=== PATIENT | male | born 1995 | race Caucasian/White ===

== ENCOUNTER 2017-11-21 22:13 | Emergency (ER) | payer OTHER ==
[~2017-11-21] VITALS: Ht 190.5 cm; Wt 122.5 kg
[~2017-11-21 22:13] MED LIST: ABILIFY10 MG PO; CLEOCIN HCL300 MG PO; DOXYCYCLINE 10100 M1 PO; DOXYCYCLINE 10100 MG PO; EFFEXOR 5050 MG/1 T1 PO; EFFEXOR XR75 MG; HYDROCODONE-AP1 EAC6 PO; IBUPROFEN 800800 M1 PO; IBUPROFEN 800800 MG PO; INVEGA9 MG; KEFLEX500 MG PO; LEXAPRO20 MG; METFORMIN HCL500 MG PO; NOHOMEMEDICATIONS; ONDANSETRON HCL4 M2 PO; OXCARBAZEPINE300 M1; PAXIL10 MG PO; PERCOCET 5-3251 EACH PO; PREDNISONE 20 M20 MG PO; PROTONIX40 M1 PO; PROZAC 10 MG CA10 MG; SEROQUEL400 MG PO; TEGRETOL XR100 MG PO; TRAMADOL 50 MG50 MG PO; TRILEPTAL; TYLENOL325 MG PO; VENTOLIN HFA 1818 GM INH; VISTARIL 25 MG25 M1 PO
[2017-11-21] MEDS ORDERED: NAPROSYN500 MG PO (23:56)
[2017-11-21] MEDS ORDERED: CYCLOBENZAPRINE5 MG PO (23:56)
[2017-11-22 00:08] VITALS: BP 138/68
== END 2017-11-22 00:08 | disposition home or self-care (01) ==
LOC: M.ERS 22:13
DX: S06.0X1A Concussion with loss of consciousness of 30 minutes or less, initial encounter (principal); S39.012A Strain of muscle, fascia and tendon of lower back, initial encounter; F98.8 Other specified behavioral and emotional disorders with onset usually occurring in childhood and adolescence; F31.9 Bipolar disorder, unspecified; F17.210 Nicotine dependence, cigarettes, uncomplicated; Z88.0 Allergy status to penicillin; Z88.2 Allergy status to sulfonamides; Z88.8 Allergy status to other drugs, medicaments and biological substances; W10.8XXA Fall (on) (from) other stairs and steps, initial encounter; Y93.89 Activity, other specified; Y92.89 Other specified places as the place of occurrence of the external cause; Y99.8 Other external cause status

== ENCOUNTER 2018-05-27 22:27 | Emergency (ER) | payer OTHER ==
[~2018-05-27] VITALS: Ht 182.9 cm; Wt 84.8 kg
[~2018-05-27 22:27] MED LIST changes: +CYCLOBENZAPRINE5 MG PO; +NAPROSYN500 MG PO
[2018-05-27 22:50] LABS: URINE CLARITY CLEAR; URINE COLOR YELOW; URINE GLUCOSE-RANDOM NEGATIVE (Negative); URINE KETONES TR (Negative); URINE PROTEIN TR (Negative)
[2018-05-27 22:51] LABS: URINE BILIRUBIN 1+ (Negative); URINE BLOOD TR (Negative); URINE LEUKOCYTES-REFLEX NEGATIVE (Negative); URINE NITRITE-REFLEX NEGATIVE (Negative)
[2018-05-27 22:52] LABS: ICTOTEST (BILI CONFIRMATORY) Negative (Negative)
[2018-05-27] MEDS ORDERED: FLEXERIL PO (23:22)
[2018-05-27] MEDS ORDERED: IBUPROFEN 800800 MG PO (23:22)
[2018-05-27 23:34] VITALS: BP 127/59
== END 2018-05-27 23:36 | disposition home or self-care (01) ==
LOC: M.ERS 22:27
PROVIDERS: Nurse Practitioner
DX: S60.221A Contusion of right hand, initial encounter (principal); M54.5 Low back pain; F31.9 Bipolar disorder, unspecified; Z88.0 Allergy status to penicillin; Z88.2 Allergy status to sulfonamides; F17.210 Nicotine dependence, cigarettes, uncomplicated; X58.XXXA Exposure to other specified factors, initial encounter; Y93.89 Activity, other specified; Y92.89 Other specified places as the place of occurrence of the external cause; Y99.8 Other external cause status

== ENCOUNTER 2018-05-30 20:30 | Emergency (ER) | payer OTHER ==
[~2018-05-30] VITALS: Ht 188 cm; Wt 86.2 kg
[~2018-05-30 20:30] MED LIST changes: +FLEXERIL PO
[2018-05-30] MEDS ORDERED: OXCARBAZEPINE300 M1 (20:43)
[2018-05-30 20:54] LABS: CALCIUM 9.1 mg/dL (8.5-10.1); CREATININE 0.9 mg/dL (0.6-1.3); POTASSIUM 3.8 mmol/L (3.5-5.1)
[2018-05-30 21:07] LABS: ABSOLUTE EOSINOPHILS 0.2 thou/uL (0.0-0.7); ABSOLUTE LYMPHOCYTES 2.4 thou/uL (0.8-5.3); ABSOLUTE MONOCYTES 0.5 thou/uL (0.0-1.2); ABSOLUTE NEUTROPHILS 5.3 thou/uL (1.6-8.1); BASOPHILS 0.6 %; EOSINOPHILS 2.2 %; HEMATOCRIT 48.4 % (42.0-52.0); HEMOGLOBIN 16.8 gm/dL (14.0-18.0); LYMPHOCYTES 28.5 %; MCH 31.3 pg (26.0-34.0); MCHC 34.7 g/dL (28.0-37.0); MCV 90.3 fL (80.0-100.0); MONOCYTES 6.3 %; MPV 9.8 fl. (7.2-11.1); NUCLEATED RBCS 0 /100WBC; PLATELET COUNT* 152 thou/uL (150-400); POLYS 62.4 %; RBC 5.37 mil/uL (4.50-6.00); RDW-CV 13.6 % (10.5-14.5); WBC 8.5 thou/uL (4.0-11.0)
[2018-05-30 21:40] VITALS: BP 102/57
--- NOTE | 2018-05-31 15:05 | EKG ---
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
== END 2018-05-30 21:42 | disposition home or self-care (01) ==
LOC: M.ERS 20:30
PROVIDERS: Emergency Medicine
DX: R07.89 Other chest pain (principal); M79.601 Pain in right arm; F31.9 Bipolar disorder, unspecified; F98.8 Other specified behavioral and emotional disorders with onset usually occurring in childhood and adolescence; F17.210 Nicotine dependence, cigarettes, uncomplicated; Z88.0 Allergy status to penicillin; Z88.2 Allergy status to sulfonamides; Z88.8 Allergy status to other drugs, medicaments and biological substances

== ENCOUNTER 2018-06-24 23:13 | Emergency (ER) | payer OTHER ==
[~2018-06-24] VITALS: Ht 205.7 cm; Wt 81.7 kg
[2018-06-24] MEDS ORDERED: TRAZODONE HCL50 MG PO (23:22)
[2018-06-24] MEDS ORDERED: PREDNISONE 10 M10 M1 PO (23:39)
[2018-06-24] MEDS ORDERED: BENZONATATE200 MG PO (23:39)
[2018-06-24 23:52] VITALS: BP 123/67
== END 2018-06-24 23:53 | disposition home or self-care (01) ==
LOC: M.ERS 23:13
DX: J40 Bronchitis, not specified as acute or chronic (principal); F31.9 Bipolar disorder, unspecified; F98.8 Other specified behavioral and emotional disorders with onset usually occurring in childhood and adolescence; F17.210 Nicotine dependence, cigarettes, uncomplicated; Z88.0 Allergy status to penicillin; Z88.2 Allergy status to sulfonamides; Z88.8 Allergy status to other drugs, medicaments and biological substances

== ENCOUNTER 2018-08-13 20:35 | Emergency (ER) | payer OTHER ==
[~2018-08-13] VITALS: Ht 182.9 cm; Wt 81.7 kg
[~2018-08-13 20:35] MED LIST changes: +BENZONATATE200 MG PO; +PREDNISONE 10 M10 M1 PO; +TRAZODONE HCL50 MG PO
[2018-08-13] MEDS ORDERED: NAPROSYN500 MG PO (21:37)
[2018-08-13] MEDS ORDERED: VENTOLIN HFA 1818 GM INH (21:37)
[2018-08-13] MEDS ORDERED: TESSALON PERLE100 MG PO (21:37)
[2018-08-13 22:09] VITALS: BP 126/66
== END 2018-08-13 22:11 | disposition home or self-care (01) ==
LOC: M.ERS 20:35
DX: S20.212D Contusion of left front wall of thorax, subsequent encounter (principal); R05 Cough; X58.XXXD Exposure to other specified factors, subsequent encounter; F31.9 Bipolar disorder, unspecified; F17.210 Nicotine dependence, cigarettes, uncomplicated; Z88.0 Allergy status to penicillin; Z88.2 Allergy status to sulfonamides

== ENCOUNTER 2018-09-17 01:19 | Emergency (ER) | payer OTHER ==
[~2018-09-17] VITALS: Ht 185.4 cm; Wt 83.9 kg
[~2018-09-17 01:19] MED LIST changes: +TESSALON PERLE100 MG PO
[2018-09-17 02:48] VITALS: BP 131/45
== END 2018-09-17 02:50 | disposition home or self-care (01) ==
LOC: M.ERS 01:19
DX: R30.0 Dysuria (principal); F17.210 Nicotine dependence, cigarettes, uncomplicated; F98.8 Other specified behavioral and emotional disorders with onset usually occurring in childhood and adolescence; F31.9 Bipolar disorder, unspecified; Z88.0 Allergy status to penicillin; Z88.2 Allergy status to sulfonamides; Z91.048 Other nonmedicinal substance allergy status

== ENCOUNTER 2018-09-22 19:15 | Emergency (ER) | payer OTHER ==
[~2018-09-22] VITALS: Ht 180.3 cm; Wt 85.3 kg
[2018-09-22] MEDS ORDERED: OXCARBAZEPINE600 MG PO (19:26)
[2018-09-22 20:26] LABS: ABSOLUTE MONOCYTES 0.6 thou/uL (0.0-1.2); BASOPHILS 0.2 %; EOSINOPHILS 0.2 %; HEMATOCRIT 43.8 % (42.0-52.0); HEMOGLOBIN 15.5 gm/dL (14.0-18.0); MCH 31.3 pg (26.0-34.0); MCHC 35.4 g/dL (28.0-37.0); MCV 88.5 fL (80.0-100.0); MONOCYTES 6.4 %; MPV 9.5 fl. (7.2-11.1); NUCLEATED RBCS 0 /100WBC; PLATELET COUNT* 136 thou/uL (150-400); POLYS 83.2 %; RBC 4.95 mil/uL (4.50-6.00); RDW-CV 13.4 % (10.5-14.5); WBC 9.6 thou/uL (4.0-11.0)
[2018-09-22 20:36] LABS: CALCIUM 9.2 mg/dL (8.5-10.1); CREATININE 0.8 mg/dL (0.6-1.3); POTASSIUM 4.5 mmol/L (3.5-5.1)
[2018-09-22 20:40] LABS: ALBUMIN 4.2 g/dL (3.4-5.0); TOTAL BILIRUBIN 1.3 mg/dL (<0.1-1.0); TOTAL PROTEIN 7.3 g/dL (6.4-8.2)
[2018-09-22 21:02] LABS: ACETAMINOPHEN < 2 ug/mL (10-30); ALCOHOL < 10 mg/dL (<10); SALICYLATE < 2.8 mg/dL (2.8-20.0)
[2018-09-22 23:20] VITALS: BP 114/62
== END 2018-09-22 23:21 | disposition home or self-care (01) ==
LOC: M.ERS 19:15
PROVIDERS: Family Medicine
DX: T42.1X1A Poisoning by iminostilbenes, accidental (unintentional), initial encounter (principal); R10.84 Generalized abdominal pain; R11.2 Nausea with vomiting, unspecified; F31.9 Bipolar disorder, unspecified; F98.8 Other specified behavioral and emotional disorders with onset usually occurring in childhood and adolescence; Z88.0 Allergy status to penicillin; Z88.2 Allergy status to sulfonamides; Z88.8 Allergy status to other drugs, medicaments and biological substances; Z79.899 Other long term (current) drug therapy; Y92.89 Other specified places as the place of occurrence of the external cause

== ENCOUNTER 2018-10-14 18:06 | Emergency (ER) | payer MEDICARE, MEDICAID ==
[~2018-10-14] VITALS: Ht 182.9 cm; Wt 81.7 kg
[~2018-10-14 18:06] MED LIST changes: +OXCARBAZEPINE600 MG PO
[2018-10-14 19:30] VITALS: BP 132/64
== END 2018-10-14 19:30 | disposition home or self-care (01) ==
LOC: M.ERS 18:06
DX: S76.112A Strain of left quadriceps muscle, fascia and tendon, initial encounter (principal); S93.492A Sprain of other ligament of left ankle, initial encounter; M25.552 Pain in left hip; F31.9 Bipolar disorder, unspecified; F98.8 Other specified behavioral and emotional disorders with onset usually occurring in childhood and adolescence; F17.210 Nicotine dependence, cigarettes, uncomplicated; Z88.0 Allergy status to penicillin; Z88.2 Allergy status to sulfonamides; Z88.8 Allergy status to other drugs, medicaments and biological substances; W18.39XA Other fall on same level, initial encounter; Y93.89 Activity, other specified; Y92.89 Other specified places as the place of occurrence of the external cause; Y99.8 Other external cause status

== ENCOUNTER 2018-11-01 18:06 | Emergency (ER) | payer OTHER, MEDICAID ==
[~2018-11-01] VITALS: Ht 182.9 cm; Wt 81.7 kg
[2018-11-01 20:11] VITALS: BP 109/43
== END 2018-11-01 20:12 | disposition home or self-care (01) ==
LOC: M.ERS 18:06
DX: S06.0X0A Concussion without loss of consciousness, initial encounter (principal); S46.812A Strain of other muscles, fascia and tendons at shoulder and upper arm level, left arm, initial encounter; F31.9 Bipolar disorder, unspecified; Z88.0 Allergy status to penicillin; Z88.2 Allergy status to sulfonamides; Z88.8 Allergy status to other drugs, medicaments and biological substances; F17.210 Nicotine dependence, cigarettes, uncomplicated; Y08.89XA Assault by other specified means, initial encounter; Y93.89 Activity, other specified; Y92.89 Other specified places as the place of occurrence of the external cause; Y99.8 Other external cause status

== ENCOUNTER 2018-11-30 20:35 | Emergency (ER) | payer OTHER, MEDICAID ==
[~2018-11-30] VITALS: Ht 170.2 cm; Wt 63.5 kg
[2018-11-30] MEDS ORDERED: IBUPROFEN 600600 M1 PO (21:19)
[2018-11-30 21:35] VITALS: BP 135/70
== END 2018-11-30 21:39 | disposition home or self-care (01) ==
LOC: M.ERS 20:35
DX: M79.641 Pain in right hand (principal); F31.9 Bipolar disorder, unspecified; F98.8 Other specified behavioral and emotional disorders with onset usually occurring in childhood and adolescence; F17.210 Nicotine dependence, cigarettes, uncomplicated; Z88.0 Allergy status to penicillin; Z88.2 Allergy status to sulfonamides

== ENCOUNTER 2018-12-22 11:07 | Emergency (ER) | payer OTHER, MEDICAID ==
[~2018-12-22] VITALS: Ht 182.9 cm; Wt 54.4 kg
[~2018-12-22 11:07] MED LIST changes: +IBUPROFEN 600600 M1 PO
[2018-12-22 12:55] VITALS: BP 122/54
== END 2018-12-22 12:56 | disposition home or self-care (01) ==
LOC: M.ERS 11:07
DX: S60.511A Abrasion of right hand, initial encounter (principal); F31.9 Bipolar disorder, unspecified; F98.8 Other specified behavioral and emotional disorders with onset usually occurring in childhood and adolescence; F17.210 Nicotine dependence, cigarettes, uncomplicated; Z88.0 Allergy status to penicillin; Z88.2 Allergy status to sulfonamides; Z88.8 Allergy status to other drugs, medicaments and biological substances; W01.0XXA Fall on same level from slipping, tripping and stumbling without subsequent striking against object, initial encounter; Y93.89 Activity, other specified; Y92.89 Other specified places as the place of occurrence of the external cause; Y99.8 Other external cause status

== ENCOUNTER 2019-01-17 17:52 | Emergency (ER) | payer OTHER, MEDICAID ==
[~2019-01-17] VITALS: Ht 182.9 cm; Wt 54.4 kg
[2019-01-17] MEDS ORDERED: VENTOLIN HFA 1818 GM INH (19:10)
[2019-01-17] MEDS ORDERED: MEDROL DOSPAK21 TA1 PO (19:10)
[2019-01-17] MEDS ORDERED: ZPAK PO (19:10)
[2019-01-17 19:24] VITALS: BP 124/54
== END 2019-01-17 19:24 | disposition home or self-care (01) ==
LOC: M.ERS 17:52
DX: J06.9 Acute upper respiratory infection, unspecified (principal); F17.210 Nicotine dependence, cigarettes, uncomplicated; F98.8 Other specified behavioral and emotional disorders with onset usually occurring in childhood and adolescence; F31.9 Bipolar disorder, unspecified; Z88.0 Allergy status to penicillin; Z88.2 Allergy status to sulfonamides; Z91.048 Other nonmedicinal substance allergy status

== ENCOUNTER 2019-10-28 21:22 | Emergency (ER) | payer MEDICARE, MEDICAID ==
[~2019-10-28] VITALS: Ht 188 cm; Wt 63.5 kg
[~2019-10-28 21:22] MED LIST changes: +MEDROL DOSPAK21 TA1 PO; +ZPAK PO
[2019-10-28] MEDS ORDERED: HYDROCODON-ACE1 EAC8 PO (22:45)
[2019-10-28] MEDS ORDERED: TRIAMCINOLONE A80 G2 TOP (22:45)
[2019-10-28] MEDS ORDERED: BACLOFEN 10MG T10 MG PO (22:45)
[2019-10-28 23:02] VITALS: BP 132/88
== END 2019-10-28 23:02 | disposition home or self-care (01) ==
LOC: M.ERS 21:22
DX: S32.2XXA Fracture of coccyx, initial encounter for closed fracture (principal); R21 Rash and other nonspecific skin eruption; F90.9 Attention-deficit hyperactivity disorder, unspecified type; F31.9 Bipolar disorder, unspecified; F17.210 Nicotine dependence, cigarettes, uncomplicated; Z91.048 Other nonmedicinal substance allergy status; Z88.0 Allergy status to penicillin; Z88.2 Allergy status to sulfonamides; W11.XXXA Fall on and from ladder, initial encounter; Y93.89 Activity, other specified; Y92.89 Other specified places as the place of occurrence of the external cause; Y99.8 Other external cause status

== ENCOUNTER 2020-04-17 22:02 | Emergency (ER) | payer MEDICARE, MEDICAID ==
[~2020-04-17] VITALS: Ht 172.7 cm; Wt 63.5 kg
[~2020-04-17 22:02] MED LIST changes: +BACLOFEN 10MG T10 MG PO; +HYDROCODON-ACE1 EAC8 PO; +TRIAMCINOLONE A80 G2 TOP
[2020-04-17 22:40] LABS: ABSOLUTE LYMPHOCYTES 1.6 thou/uL (0.8-5.3); ABSOLUTE MONOCYTES 0.9 thou/uL (0.0-1.2); ABSOLUTE NEUTROPHILS 13.1 thou/uL (1.6-8.1); BASOPHILS 0.2 %; CALCIUM 9.1 mg/dL (8.5-10.1); CREATININE 1.1 mg/dL (0.6-1.3); EOSINOPHILS 0.1 %; HEMATOCRIT 45.8 % (42.0-52.0); HEMOGLOBIN 16.3 gm/dL (14.0-18.0); LYMPHOCYTES 10.4 %; MCH 31.1 pg (26.0-34.0); MCHC 35.6 g/dL (28.0-37.0); MCV 87.3 fL (80.0-100.0); MPV 8.9 fl. (7.2-11.1); NUCLEATED RBCS 0 /100WBC; PLATELET COUNT* 165 thou/uL (150-400); POLYS 83.3 %; POTASSIUM 3.6 mmol/L (3.5-5.1); RBC 5.24 mil/uL (4.50-6.00); RDW-CV 13.6 % (10.5-14.5); WBC 15.7 thou/uL (4.0-11.0)
[2020-04-17 22:44] LABS: ALBUMIN 4.5 g/dL (3.4-5.0); TOTAL BILIRUBIN 2.7 mg/dL (<0.1-1.0); TOTAL PROTEIN 7.5 g/dL (6.4-8.2)
[2020-04-17 23:03] LABS: ALCOHOL < 10 mg/dL (<10); SALICYLATE < 2.8 mg/dL (2.8-20.0)
[2020-04-17 23:07] LABS: ACETAMINOPHEN < 2 ug/mL (10-30)
[2020-04-17 23:53] LABS: URINE BILIRUBIN 1+ (Negative); URINE BLOOD TRACE (Negative); URINE CLARITY CLEAR; URINE COLOR YELLOW; URINE GLUCOSE-RANDOM NEGATIVE (Negative); URINE KETONES TRACE (Negative); URINE LEUKOCYTES-REFLEX TRACE (Negative); URINE NITRITE-REFLEX NEGATIVE (Negative); URINE PROTEIN 2+ (Negative); URINE SPECIFIC GRAVITY 1.025 (1.005-1.030)
[2020-04-17 23:58] LABS: ICTOTEST (BILI CONFIRMATORY) Positive (Negative)
[2020-04-17 23:59] LABS: AMP/METHAMP Negative (Negative); BARBITURATES Negative (Negative); BENZODIAZEPINES POSITIVE (Negative); COCAINE Negative (Negative); METHADONE Negative (Negative); OPIATES Negative (Negative); PCP Negative (Negative); THC POSITIVE (Negative)
[2020-04-18 00:23] LABS: HYALINE CASTS 4-10 Moderate /LPF (None Seen); MUCUS 4-6 Moderate strn/LPF (None Seen); SQUAMOUS 0-3 Few /LPF (0-3); URINE WBC-REFLEX 6-15 Few /HPF (0-5)
[2020-04-18 00:24] LABS: CRYSTALS None Seen /LPF (None Seen); URINE RBC 0-2 Rare /HPF (0-2)
[2020-04-18 02:30] VITALS: BP 122/70
== END 2020-04-18 02:51 | disposition home or self-care (01) ==
LOC: M.ERS 22:02
PROVIDERS: Emergency Medicine Emergency Medical Services
DX: F32.9 Major depressive disorder, single episode, unspecified (principal); S90.122A Contusion of left lesser toe(s) without damage to nail, initial encounter; F17.210 Nicotine dependence, cigarettes, uncomplicated; Z88.0 Allergy status to penicillin; Z88.2 Allergy status to sulfonamides; Z79.899 Other long term (current) drug therapy; X58.XXXA Exposure to other specified factors, initial encounter; Y93.89 Activity, other specified; Y92.89 Other specified places as the place of occurrence of the external cause; Y99.8 Other external cause status

== ENCOUNTER 2020-06-24 21:36 | Emergency (ER) | payer MEDICARE, MEDICAID ==
[~2020-06-24] VITALS: Ht 177.8 cm; Wt 68.0 kg
[2020-06-24] MEDS ORDERED: CELEXA 20 MG TA20 MG PO (22:04)
[2020-06-24 23:19] LABS: URINE BILIRUBIN NEGATIVE (Negative); URINE BLOOD 1+ (Negative); URINE CLARITY CLEAR; URINE COLOR YELLOW; URINE GLUCOSE-RANDOM NEGATIVE (Negative); URINE KETONES NEGATIVE (Negative); URINE LEUKOCYTES-REFLEX NEGATIVE (Negative); URINE NITRITE-REFLEX NEGATIVE (Negative); URINE PROTEIN NEGATIVE (Negative); URINE SPECIFIC GRAVITY 1.025 (1.005-1.030); URINE UROBILINOGEN 0.2 E.U./dl (0.2-1.0)
[2020-06-24 23:48] LABS: BACTERIA-REFLEX 1-9 Few /HPF (None Seen); CASTS None Seen /LPF (None Seen); MUCUS 0-3 Light strn/LPF (None Seen); SQUAMOUS 0-3 Few /LPF (0-3); URINE RBC 0-2 Rare /HPF (0-2); URINE WBC-REFLEX None Seen /HPF (0-5)
[2020-06-24 23:49] LABS: CRYSTALS None Seen /LPF (None Seen)
[2020-06-25 00:02] VITALS: BP 123/76
== END 2020-06-25 00:03 | disposition home or self-care (01) ==
LOC: M.ERS 21:36
PROVIDERS: Personal Emergency Response Attendant
DX: Z20.2 Contact with and (suspected) exposure to infections with a predominantly sexual mode of transmission (principal); R36.9 Urethral discharge, unspecified; F17.210 Nicotine dependence, cigarettes, uncomplicated; Z88.0 Allergy status to penicillin; Z88.2 Allergy status to sulfonamides

== ENCOUNTER 2021-01-18 06:19 | Emergency (ER) | payer MEDICARE, MEDICAID ==
[~2021-01-18] VITALS: Ht 182.9 cm; Wt 79.8 kg
[~2021-01-18 06:19] MED LIST changes: +CELEXA 20 MG TA20 MG PO
[2021-01-18] MEDS ORDERED: LATUDA20 MG PO (06:41)
[2021-01-18 07:40] VITALS: BP 119/61
== END 2021-01-18 07:40 | disposition home or self-care (01) ==
LOC: M.ERS 06:19
DX: S06.0X0A Concussion without loss of consciousness, initial encounter (principal); F17.210 Nicotine dependence, cigarettes, uncomplicated; Z88.0 Allergy status to penicillin; Z88.2 Allergy status to sulfonamides; W18.39XA Other fall on same level, initial encounter; Y93.89 Activity, other specified; Y92.091 Bathroom in other non-institutional residence as the place of occurrence of the external cause; Y99.8 Other external cause status

== ENCOUNTER 2021-02-26 17:48 | Emergency (ER) | payer MEDICARE, MEDICAID ==
[~2021-02-26] VITALS: Ht 177.8 cm; Wt 49.9 kg
[~2021-02-26 17:48] MED LIST changes: +LATUDA20 MG PO
[2021-02-26 18:19] VITALS: BP 126/69
== END 2021-02-26 18:19 | disposition home or self-care (01) ==
LOC: M.ERS 17:48
DX: S00.83XA Contusion of other part of head, initial encounter (principal); F17.210 Nicotine dependence, cigarettes, uncomplicated; Z88.0 Allergy status to penicillin; Z88.2 Allergy status to sulfonamides; Z88.8 Allergy status to other drugs, medicaments and biological substances; W18.39XA Other fall on same level, initial encounter; Y93.89 Activity, other specified; Y92.89 Other specified places as the place of occurrence of the external cause; Y99.8 Other external cause status